=== PATIENT | male | born 1970 | race African-American/Black ===

== ENCOUNTER 2018-03-08 14:47 | Inpatient (IN) | payer SELFPAY ==
[2018-03-08 16:43] VITALS: BMI 28.4
--- NOTE | 2018-03-08 18:06 | HP ---
CIWA Score - CIWA Score Nausea/Vomitin-No Nausea/No Vomiting Muscle Tremors: 2 Anxiety: 4-Mod. Anxious/Guarded Agitation: 4-Moderately Restless Paroxysmal Sweats: 2 Orientation: 1-Uncertain about Date (no distress) Tacttile Disturbances: 0-None Auditory Disturbances: 0-None Visual Disturbances: 0-None Headache: 1-Very Mild CIWA-Ar Total Score: 14 Admission ROS BHS - HPI Chief Complaint: alcohol withdrawal sx Allergies/Adverse Reactions: Allergies Allergy/AdvReac Type Severity Reaction Status Date / Time shellfish derived Allergy Severe Swelling Verified 03/08/18 17:16 No Known Drug Allergies Allergy Verified 03/08/18 18:14 History of Present Illness: 47 yo male with hx of alcohol and cocaine dependence si here seeking detox. last detox [facility] 45 days ago. PMHX: HTN, HDL, anxiety, bipolar. Denies suicidal / homicidal ideation or hx of suicide attempt. Reports no significant period of sobriety. Denies any legal troubles.Denies any hx of seizure or blackouts. Exam Limitations: No Limitations - Ebola screening Have you traveled outside of the country in the last 21 days: No Have you had contact with anyone from an Ebola affected area: No Have you been sick,other than usual withdrawal symptoms: No - Review of Systems Constitutional: Chills, Loss of Appetite, Changes in sleep, Other (weight gain + 15) EENT: reports: No Symptoms Reported Respiratory: reports: No Symptoms reported Cardiac: reports: No Symptoms Reported GI: reports: Poor Fluid Intake : reports: No Symptoms Reported Musculoskeletal: reports: No Symptoms Reported Integumentary: reports: No Symptoms Reported Neuro: reports: See HPI, Headache Endocrine: reports: Increased Thirst Hematology: reports: No Symptoms Reported Psychiatric: reports: Orientated x3, Anxious Other Systems: Reviewed and Negative Patient History - Patient Medical History Hx Anemia: No Hx Asthma: No Hx Chronic Obstructive Pulmonary Disease (COPD): No Hx Cancer: No Hx Cardiac Disorders: No Hx Congestive Heart Failure: No Hx Hypertension: Yes (on meds.) Hx Hypercholesterolemia: No Hx Pacemaker: No HX Cerebrovascular Accident: No Hx Seizures: No Hx Dementia: No Hx Diabetes: No Hx Gastrointestinal Disorders: No Hx Liver Disease: No Hx Genitourinary Disorders: No Hx Sexually Transmitted Disorders: No Hx Renal Disease (ESRD): No Hx Thyroid Disease: No Hx Human Immunodeficiency Virus (HIV): No Hx Hepatitis C: No Hx Depression: Yes Hx Suicide Attempt: No Hx Bipolar Disorder: Yes Hx Schizophrenia: No - Patient Surgical History Past Surgical History: Yes Other Surgical History: Pt has sx both ears in 2004 and 2005 Anesthesia Reaction: No - PPD History Previous Implant?: Yes Documented Results: Negative w/o proof Implanted On Prior R Admission?: No PPD to be Administered?: Yes - Smoking Cessation Smoking history: Former smoker Have you smoked in the past 12 months: No Hx Chewing Tobacco Use: No Initiated information on smoking cessation: No - Substance & Tx. History Hx Alcohol Use: Yes Hx Substance Use: Yes Substance Use Type: Alcohol, Cocaine Hx Substance Use Treatment: Yes ([facility] 45 days ago ) - Substances Abused Alcohol Route: Oral Frequency: Daily Amount used: 6-7 20 oz beer or 2 pints liquor Age of first use: 16 Date of Last Use: 03/08/18 Cocaine Route: Smoking Frequency: Daily Amount used: $100-150 Age of first use: 16 Date of Last Use: 03/07/18 Family Disease History - Family Disease History Family Disease History: Other: Mother (alcoholism, ) Admission Physical Exam BHS - Vital Signs Vital Signs: Vital Signs - 24 hr 03/08/18 16:41 Temperature 98.3 F Pulse Rate 96 H Respiratory 20 Rate Blood Pressure 156/87 - Physical General Appearance: Yes: Disheveled, Mild Distress, Moderate Distress, Obese, Sweating, Anxious HEENTM: Yes: EOMI, Hearing grossly Normal, Normal ENT Inspection, Normocephalic , Normal Voice, [place], Pharynx Normal, Tm's normal, Rhinorrhea, Other (scar back of head) Respiratory: Yes: Chest Non-Tender, Lungs Clear, Normal Breath Sounds, No Respiratory Distress, No Accessory Muscle Use Neck: Yes: Within Normal Limits Cardiology: Yes: Regular Rhythm, Tachycardia Abdominal: Yes: Normal Bowel Sounds, Non Tender, Soft, Protuberent Genitourinary: Yes: Within Normal Limits Back: Yes: Normal Inspection Musculoskeletal: Yes: full range of Motion, Gait Steady, Pelvis Stable Extremities: Yes: Normal Capillary Refill, Normal Inspection, Normal Range of Motion, Non-Tender Neurological: Yes: transplant surgeon II-XII NML intact, Fully Oriented, Alert, Motor Strength 5/5, Depressed Affect Integumentary: Yes: Normal Color, Warm, Diaphoresis Lymphatic: Yes: Within Normal Limits - Diagnostic (1) Hypertension Current Visit: Yes Status: Chronic Qualifiers: Hypertension type: essential hypertension Qualified Code(s): I10 - Essential (primary) hypertension (2) Hyperlipidemia Current Visit: Yes Status: Chronic Qualifiers: Hyperlipidemia type: unspecified Qualified Code(s): E78.5 - Hyperlipidemia , unspecified (3) Alcohol dependence with withdrawal Current Visit: Yes Status: Acute Qualifiers: Complication of substance-induced condition: uncomplicated Qualified Code(s ): F10.230 - Alcohol dependence with withdrawal, uncomplicated (4) Cocaine dependence Current Visit: Yes Status: Acute Qualifiers: Substance use status: uncomplicated Qualified Code(s): F14.20 - Cocaine dependence, uncomplicated Cleared for Admission S - Detox or Rehab [facility] Level of Care: Medically Managed Detox Regimen/Protocol: Librium S Breath Alcohol Content Breath Alcohol Content: 0 Urine Drug Screen - Results Drug Screen Negative: No Urine Drug Screen Results: [facility]-Cocaine
[2018-03-08] MEDS ORDERED: IBUPROFEN 400 MG TABLET (FP) PO PRN (18:08)
[2018-03-08] MEDS ORDERED: hydrOXYzine PAMOATE 50 MG CAPSULE (FP) PO PRN (18:08)
[2018-03-08] MEDS ORDERED: ACETAMINOPHEN 325 MG TABLET (FP) PO PRN (18:08)
[2018-03-08] MEDS ORDERED: MAGNESIUM HYDROX 2400MG/30ML ORAL SUSPENSION 30 ML CUP PO PRN (18:08)
[2018-03-08] MEDS ORDERED: LOPERAMIDE HCL 2 MG CAPSULE PO PRN (18:08)
[2018-03-08] MEDS ORDERED: chlordiazePOXIDE HCL 25 MG CAPSULE PO PRN (18:08)
[2018-03-08] MEDS ORDERED: P-EPHED 60MG/TRIPROLIDI 2.5MG TABLET PO PRN (18:08)
[2018-03-08] MEDS ORDERED: MAGNESIUM CITRATE 300 ML BOTTLE PO PRN (18:08)
[2018-03-08] MEDS ORDERED: MAG HYDROX/AL HYDROX/SIMETH 30 ML UNIT-DOSE CUP PO PRN (18:08)
[2018-03-08] MEDS ORDERED: NICOTINE POLACRILEX 2 MG GUM BC PRN (18:08)
[2018-03-08] MEDS ORDERED: chlordiazePOXIDE HCL 25 MG CAPSULE PO ONE (19:00)
[2018-03-08] MEDS ORDERED: MELATONIN 5 MG TABLETS PO PRN (22:00)
[2018-03-08] MEDS: THIAMINE HCL 100 MG TABLET (FP) PO SCH (22:04)
[2018-03-08] MEDS: RANITIDINE HCL 150 MG TABLET (FP) PO SCH (22:04)
[2018-03-08] MEDS: chlordiazePOXIDE HCL 25 MG CAPSULE PO SCH (22:05)
[2018-03-08] MEDS: ATORVASTATIN CA 20 MG TABLET (FP) PO SCH (22:05)
[2018-03-08 22:17] LABS: URINE APPEARANCE CLEAR; URINE BILIRUBIN NEGATIVE (<2.0 mg/dL); URINE COLOR LTYELLOW; URINE GLUCOSE (UA) NEGATIVE (NEGATIVE); URINE KETONE NEGATIVE (NEGATIVE); URINE LEUK ESTERASE NEGATIVE (NEGATIVE); URINE NITRITE NEGATIVE (NEGATIVE); URINE PROTEIN NEGATIVE (NEGATIVE); URINE UROBILINOGEN NEGATIVE mg/dL (0.2-1.0)
[2018-03-09] MEDS: chlordiazePOXIDE HCL 25 MG CAPSULE PO SCH ×4 (05:09→22:27)
--- NOTE | 2018-03-09 06:43 | PN ---
BHS Progress Note Note: Patient's blood pressure this morning is B/P 156/101. Patient is asymptomatic Vital Signs Temperature 97.4 F L 03/09/18 06:18 Pulse Rate 80 03/09/18 06:18 Respiratory Rate 18 03/09/18 06:18 Blood Pressure 156/101 H 03/09/18 06:18 O2 Sat by Pulse Oximetry (%) Action: Clonidine 0.1mg 1tablet oral ordered
[2018-03-09] MEDS ORDERED: cloNIDine HCL 0.1 MG TABLET PO ONE (06:45)
[2018-03-09] MEDS ORDERED: LISINOPRIL 20 MG TABLET (FP) PO SCH (10:00)
--- NOTE | 2018-03-09 10:04 | CONSULT ---
[facility] Psychiatric Consult - Data Date of interview: 03/09/18 Admission source: [facility] Identifying data: Patient is a 47 year old single male, unemployed (denies receiving financial asssistance), and is currently homeless. This is patient's first admission to detox at [facility]. Patient admitted to for alcohol dependence. Substance Abuse History: Smoking Cessation. Smoking history: Former smoker. Have you smoked in the past 12 months: No. Hx Chewing Tobacco Use: No. Initiated information on smoking cessation: No. - Substance & Tx. History. Hx Alcohol Use: Yes. Hx Substance Use: Yes. Substance Use Type: Alcohol, Cocaine. Hx Substance Use Treatment: Yes ([facility] 45 days ago ). - Substances Abused. Alcohol. Route: Oral. Frequency: Daily. Amount used: 6 -7 20 oz beer or 2 pints liquor. Age of first use: 16. Date of Last Use: 03/08. Cocaine. Route: Smoking. Frequency: Daily. Amount used: $100-150. Age of first use: 16. Date of Last Use: 03/07/18 Medical History: hypertension Psychiatric History: Patient's first psychatric contact was at 23 years of age while he was incarcerated. He was diagnosed with bipolar and schizoaffective disorder. Patient was prescribed risperdal, seroquel, and buspar. He reports multiple psychiatric hospitalizations, most recently one month ago at [facility] after stating he wanted to hurt himself due to having a verbal dispute with his girlfriend. Patient is also known to [facility]. Patient denies current outpatient psychiatric care. While at [facility] he reports being prescribed vistaril 25mg + risperdal 3qhs + Seroquel 100mg and buspar (unknown dose). Pharmacy claims reviewed and noted an electronic prescription sent to patient's pharmacy on 12/08/17 for Vistaril 50mg q6h + Seroquel 100mg qhs + Risperdal 2mg daily + 3mg qhs. Pt. denies taking risperdal 2mg in the morning, states he has only taken risperdal 3mg at night. He last accepted risperdal 3mg last week. He denies current outpatient pscyhiatric care. He reports receiving refills from detox/rehab facilites. Patient denies h/o suicide attempt. Patient is asymptomatic. No psychosis, manic or depressive symptoms noted. He currently reports poor sleep. Physical/Sexual Abuse/Trauma History: denies. Mental Status Exam - Mental Status Exam Alert and Oriented to: Time, Place, Person Cognitive Function: Good Patient Appearance: Well Groomed Mood: Euthymic Affect: Mood Congruent Patient Behavior: Cooperative Speech Pattern: Appropriate Voice Loudness: Normal Thought Process: Intact, Goal Oriented Thought Disorder: Not Present Hallucinations: Denies Suicidal Ideation: Denies Homicidal Ideation: Denies Insight/Judgement: Poor Sleep: Poorly Appetite: Fair Muscle strength/Tone: Normal Gait/Station: Normal Psychiatric Findings - Problem List ([place] 1, 2,3) (1) Schizoaffective disorder Current Visit: Yes Status: Chronic Comment: self reports. (2) Alcohol dependence with withdrawal Current Visit: Yes Status: Acute Qualifiers: Complication of substance-induced condition: uncomplicated Qualified Code(s ): F10.230 - Alcohol dependence with withdrawal, uncomplicated (3) Cocaine dependence Current Visit: Yes Status: Chronic Qualifiers: Substance use status: uncomplicated Qualified Code(s): F14.20 - Cocaine dependence, uncomplicated - Initial Treatment Plan Initial Treatment Plan: Psychoeducation provided. Detoxification in progress. Will order risperdal 1mg BID + Seroquel 100mg qhs + Cogentin 0.5mg BID. Benefits and side effects discussed. Verbal consent given.
[2018-03-09 10:12] LABS: HEMATOCRIT 33.9 % (35.4-49); HEMOGLOBIN 11.3 GM/dL (11.7-16.9); MCH 28.5 pg (25.7-33.7); MCHC 33.4 g/dl (32.0-35.9); MEAN CELL VOLUME 85.3 fl (80-96); MEAN PLT VOLUME 8.5 fl (7.5-11.1); PLATELET COUNT 285 K/MM3 (134-434); RBC 3.97 M/mm3 (4.00-5.60); RDW 13.5 % (11.9-15.9); WHITE BLOOD COUNT 3.8 K/mm3 (4.0-10.0)
--- NOTE | 2018-03-09 10:17 | PN ---
S CIWA - CIWA Score Nausea/Vomitin-No Nausea/No Vomiting Muscle Tremors: 4-Moderate,w/Arms Extend Anxiety: 3 Agitation: 3 Paroxysmal Sweats: 3 Orientation: 0-Oriented Tacttile Disturbances: 0-None Auditory Disturbances: 0-None Visual Disturbances: 0-None Headache: 0-None Present CIWA-Ar Total Score: 13 BHS Progress Note (SOAP) Subjective: sweats mild shakes interrupted sleep Objective: 03/09/18 10:17 Vital Signs Temperature 98.4 F 03/09/18 09:40 Pulse Rate 90 03/09/18 09:40 Respiratory Rate 20 03/09/18 09:40 Blood Pressure 126/73 03/09/18 09:40 O2 Sat by Pulse Oximetry (%) Laboratory Tests 03/08/18 03/09/18 20:48 07:00 WBC 3.8 L RBC 3.97 L Hgb 11.3 L Hct 33.9 L MCV 85.3 MCH 28.5 MCHC 33.4 RDW 13.5 Plt Count 285 MPV 8.5 Urine Color Ltyellow Urine Appearance Clear Urine pH 5.0 Ur Specific [place] 1.018 Urine Protein Negative Urine Glucose (UA) Negative Urine Ketones Negative Urine Blood Negative Urine Nitrite Negative Urine Bilirubin Negative Urine Urobilinogen Negative Ur Leukocyte Esterase Negative rest of labs pending aaox 3 ambulating no acute distress Assessment: 03/09/18 10:21 withdrawal sx Plan: continue detox increase fluids labs pending
[2018-03-09] MEDS: NICOTINE 14 MG/24 HOURS TOPICAL PATCH TD SCH (10:20)
[2018-03-09] MEDS: PRENATAL VITAMINS W/ FOLIC ACID TABLET (FP) PO SCH (10:20)
[2018-03-09] MEDS: amLODIPine BESYLATE 10 MG TABLET (FP) PO SCH (10:21)
[2018-03-09] MEDS: RANITIDINE HCL 150 MG TABLET (FP) PO SCH ×2 (10:21→22:27)
[2018-03-09] MEDS: ASPIRIN 81 MG CHEWABLE TABLETS PO SCH (10:21)
[2018-03-09] MEDS: HYDROCHLOROTHIAZIDE 25 MG TABLET (FP) PO SCH (10:21)
[2018-03-09 10:30] LABS: ALBUMIN 3.3 g/dl (3.4-5.0); ALK PHOS 67 U/L (45-117); ANION GAP 6 MMOL/L (8-16); BILIRUBIN,TOTAL 0.2 mg/dL (0.2-1); BLOOD UREA NITROGEN 19 mg/dL (7-18); CALCIUM 8.7 mg/dL (8.5-10.1); CHLORIDE 106 mmol/L (98-107); CO2 25 mmol/L (21-32); CREATININE 1.3 mg/dL (0.55-1.3); GLUCOSE,RANDOM 175 mg/dL (74-106); POTASSIUM 4.1 mmol/L (3.5-5.1); SGOT/AST 19 U/L (15-37); SGPT/ALT 41 U/L (13-61); SODIUM 137 mmol/L (136-145); TOT PROT 6.3 g/dl (6.4-8.2)
[2018-03-09] MEDS ORDERED: ENALAPRIL MALEATE 10 MG TABLET (FP) PO SCH (10:45)
[2018-03-09] MEDS: BENZTROPINE MESYLATE 1 MG TABLET (FP) PO SCH ×2 (11:39→22:27)
[2018-03-09] MEDS: risperiDONE 1 MG TABLET (FP) PO SCH ×2 (11:40→22:27)
[2018-03-09] MEDS: hydrOXYzine PAMOATE 50 MG CAPSULE (FP) PO PRN ×2 (11:57→18:53)
--- NOTE | 2018-03-09 13:16 | EKG ---
Test Reason : Blood Pressure : / mmHG Vent. Rate : 086 BPM Atrial Rate : 086 BPM P-R Int : 168 ms QRS Dur : 078 ms QT Int : 360 ms P-R-T Axes : 062 049 052 degrees QTc Int : 430 ms NORMAL SINUS RHYTHM NONSPECIFIC ST AND T WAVE ABNORMALITY ABNORMAL ECG WHEN COMPARED WITH ECG OF 08-MAR-2018 19:05, ST NO LONGER DEPRESSED IN ANTERIOR LEADS QT HAS SHORTENED Confirmed by MD QUINTEN, MAIN ([id number]) on 03/09/2018 1:15:42 PM Referred By: Confirmed By:MAIN SHIPLEY MD
--- NOTE | 2018-03-09 13:17 | EKG ---
Test Reason : Blood Pressure : / mmHG Vent. Rate : 078 BPM Atrial Rate : 078 BPM P-R Int : 154 ms QRS Dur : 066 ms QT Int : 448 ms P-R-T Axes : 064 059 054 degrees QTc Int : 510 ms POOR DATA QUALITY, INTERPRETATION MAY BE ADVERSELY AFFECTED NORMAL SINUS RHYTHM NONSPECIFIC T WAVE ABNORMALITY PROLONGED QT ABNORMAL ECG NO PREVIOUS ECGS AVAILABLE Confirmed by MD QUINTEN, MAIN ([id number]) on 03/09/2018 1:17:18 PM Referred By: Confirmed By:MAIN SHIPLEY MD
[2018-03-09] MEDS: MENTHOL/PHENOL 1 EACH UD MM PRN ×2 (19:25→22:28)
[2018-03-09] MEDS: guaiFENesin/D-METHORPHAN HB 10 ML UNIT-DOSE CUPS PO PRN (21:12)
[2018-03-09] MEDS: THIAMINE HCL 100 MG TABLET (FP) PO SCH (22:26)
[2018-03-09] MEDS: ATORVASTATIN CA 20 MG TABLET (FP) PO SCH (22:27)
[2018-03-09] MEDS: QUEtiapine FUMARATE 100 MG TABLET (FP) PO SCH (22:27)
[2018-03-10] MEDS: hydrOXYzine PAMOATE 50 MG CAPSULE (FP) PO PRN ×4 (05:50→19:19)
[2018-03-10] MEDS: chlordiazePOXIDE HCL 25 MG CAPSULE PO SCH ×3 (05:50→17:01)
[2018-03-10] MEDS: guaiFENesin/D-METHORPHAN HB 10 ML UNIT-DOSE CUPS PO PRN (05:52)
[2018-03-10] MEDS: MENTHOL/PHENOL 1 EACH UD MM PRN ×2 (06:08→10:51)
--- NOTE | 2018-03-10 09:51 | PN ---
[facility] CIWA - CIWA Score Nausea/Vomitin-No Nausea/No Vomiting Muscle Tremors: 3 Anxiety: 2 Agitation: 2 Paroxysmal Sweats: 3 Orientation: 0-Oriented Tacttile Disturbances: 0-None Auditory Disturbances: 0-None Visual Disturbances: 0-None Headache: 0-None Present CIWA-Ar Total Score: 10 S Progress Note (SOAP) Subjective: I have a cold little sweats I am not a diabetic and I dont need to get my finger pricked. Objective: 03/10/18 09:49 Vital Signs Temperature 97.9 F 03/10/18 07:18 Pulse Rate 100 H 03/10/18 07:18 Respiratory Rate 20 03/10/18 07:18 Blood Pressure 138/85 03/10/18 07:18 O2 Sat by Pulse Oximetry (%) Laboratory Tests 03/08/18 03/09/18 03/09/18 20:48 07:00 07:00 WBC 3.8 L RBC 3.97 L Hgb 11.3 L Hct 33.9 L MCV 85.3 MCH 28.5 MCHC 33.4 RDW 13.5 Plt Count 285 MPV 8.5 Sodium 137 Potassium 4.1 Chloride 106 Carbon Dioxide 25 Anion Gap 6 L BUN 19 H Creatinine 1.3 Creat Clearance w eGFR 59.43 POC Glucometer Random Glucose 175 H Calcium 8.7 Total Bilirubin 0.2 AST 19 ALT 41 Alkaline Phosphatase 67 Total Protein 6.3 L Albumin 3.3 L Urine Color Ltyellow Urine Appearance Clear Urine pH 5.0 Ur Specific [place] 1.018 Urine Protein Negative Urine Glucose (UA) Negative Urine Ketones Negative Urine Blood Negative Urine Nitrite Negative Urine Bilirubin Negative Urine Urobilinogen Negative Ur Leukocyte Esterase Negative RPR Titer 03/09/18 03/10/18 07:00 06:34 WBC RBC Hgb Hct MCV MCH MCHC RDW Plt Count MPV Sodium Potassium Chloride Carbon Dioxide Anion Gap BUN Creatinine Creat Clearance w eGFR POC Glucometer 204 Random Glucose Calcium Total Bilirubin AST ALT Alkaline Phosphatase Total Protein Albumin Urine Color Urine Appearance Urine pH Ur Specific [place] Urine Protein Urine Glucose (UA) Urine Ketones Urine Blood Urine Nitrite Urine Bilirubin Urine Urobilinogen Ur Leukocyte Esterase RPR Titer Nonreactive aaox3 ambulating no acute distress Assessment: 03/10/18 09:53 withdrawal sx Plan: continue detox increase fluids encouraged to stay away of concentrated sweets,pt in agreement
[2018-03-10] MEDS: ASPIRIN 81 MG CHEWABLE TABLETS PO SCH (10:45)
[2018-03-10] MEDS: BENZTROPINE MESYLATE 1 MG TABLET (FP) PO SCH ×2 (10:45→23:04)
[2018-03-10] MEDS: risperiDONE 1 MG TABLET (FP) PO SCH ×2 (10:45→23:04)
[2018-03-10] MEDS: RANITIDINE HCL 150 MG TABLET (FP) PO SCH ×2 (10:45→23:04)
[2018-03-10] MEDS: HYDROCHLOROTHIAZIDE 25 MG TABLET (FP) PO SCH (10:45)
[2018-03-10] MEDS: PRENATAL VITAMINS W/ FOLIC ACID TABLET (FP) PO SCH (10:46)
[2018-03-10] MEDS: NICOTINE 14 MG/24 HOURS TOPICAL PATCH TD SCH (10:46)
[2018-03-10] MEDS: ENALAPRIL MALEATE 10 MG TABLET (FP) PO SCH (10:46)
[2018-03-10] MEDS: amLODIPine BESYLATE 10 MG TABLET (FP) PO SCH (10:46)
[2018-03-10] MEDS: ATORVASTATIN CA 20 MG TABLET (FP) PO SCH (23:04)
[2018-03-10] MEDS: chlordiazePOXIDE 5 MG CAPSULE PO SCH (23:04)
[2018-03-10] MEDS: QUEtiapine FUMARATE 100 MG TABLET (FP) PO SCH (23:04)
[2018-03-10] MEDS: THIAMINE HCL 100 MG TABLET (FP) PO SCH (23:04)
[2018-03-11] MEDS: chlordiazePOXIDE 5 MG CAPSULE PO SCH ×3 (05:26→17:34)
[2018-03-11] MEDS: hydrOXYzine PAMOATE 50 MG CAPSULE (FP) PO PRN ×4 (05:27→22:13)
[2018-03-11] MEDS: guaiFENesin/D-METHORPHAN HB 10 ML UNIT-DOSE CUPS PO PRN (05:35)
[2018-03-11] MEDS: ASPIRIN 81 MG CHEWABLE TABLETS PO SCH (10:18)
[2018-03-11] MEDS: PRENATAL VITAMINS W/ FOLIC ACID TABLET (FP) PO SCH (10:18)
[2018-03-11] MEDS: RANITIDINE HCL 150 MG TABLET (FP) PO SCH ×2 (10:18→23:29)
[2018-03-11] MEDS: ENALAPRIL MALEATE 10 MG TABLET (FP) PO SCH (10:18)
[2018-03-11] MEDS: amLODIPine BESYLATE 10 MG TABLET (FP) PO SCH (10:18)
[2018-03-11] MEDS: HYDROCHLOROTHIAZIDE 25 MG TABLET (FP) PO SCH (10:19)
[2018-03-11] MEDS: BENZTROPINE MESYLATE 1 MG TABLET (FP) PO SCH ×2 (10:19→22:11)
[2018-03-11] MEDS: NICOTINE 14 MG/24 HOURS TOPICAL PATCH TD SCH (10:19)
[2018-03-11] MEDS: risperiDONE 1 MG TABLET (FP) PO SCH ×2 (10:20→22:11)
--- NOTE | 2018-03-11 10:30 | PN ---
BHS Progress Note (SOAP) Subjective: sweats feeling better. Objective: 03/11/18 10:30 Vital Signs Temperature 97.7 F 03/11/18 08:07 Pulse Rate 96 H 03/11/18 08:07 Respiratory Rate 20 03/11/18 08:07 Blood Pressure 135/81 03/11/18 08:07 O2 Sat by Pulse Oximetry (%) aaox3 ambulating no acute distress Assessment: 03/11/18 10:30 mild withdrawal sx Plan: continue detox increase fluids d/c in am
[2018-03-11] MEDS: chlordiazePOXIDE HCL 10 MG CAPSULE PO SCH (22:11)
[2018-03-11] MEDS: QUEtiapine FUMARATE 100 MG TABLET (FP) PO SCH (22:11)
[2018-03-11] MEDS: THIAMINE HCL 100 MG TABLET (FP) PO SCH (22:11)
[2018-03-11] MEDS: ATORVASTATIN CA 20 MG TABLET (FP) PO SCH (22:11)
[2018-03-12] MEDS: chlordiazePOXIDE HCL 10 MG CAPSULE PO SCH (05:28)
--- NOTE | 2018-03-12 08:53 | DS ---
[facility] Detox Discharge Summary Admission Date: 03/08/18 Discharge Date: 03/12/18 - History Present History: Alcohol Dependence, Cocaine Dependence - Physical Exam Results Vital Signs: Vital Signs Temperature 98.1 F 03/12/18 08:11 Pulse Rate 88 03/12/18 08:11 Respiratory Rate 18 03/12/18 08:11 Blood Pressure 121/85 03/12/18 08:11 O2 Sat by Pulse Oximetry (%) - Treatment Hospital Course: Detox Protocol Followed, Detoxed Safely, Responded well, Discharged Condition Good, Rehab Referral Accepted - Medication Discharge Medications: Ambulatory Orders Amlodipine Besylate [Norvasc -] 10 mg PO DAILY 03/08/18 Aspirin [ASA -] 81 mg PO DAILY 03/08/18 Atorvastatin Calcium [Lipitor] 20 mg PO HS 03/08/18 Benztropine Mesylate [Cogentin -] 0.5 mg PO BID 03/08/18 Buspirone HCl [Buspar -] 15 mg PO BID 03/08/18 Hydrochlorothiazide [Hctz -] 25 mg PO DAILY 03/08/18 Lisinopril 20 mg PO DAILY 03/08/18 Quetiapine Fumarate [Seroquel -] 100 mg PO HS 03/08/18 Ranitidine [Zantac -] 150 mg PO BID 03/08/18 Risperidone [Risperdal -] 3 mg PO HS 03/08/18 hydrOXYzine PAMOATE [Vistaril -] 25 mg PO QID PRN 03/08/18 Enalapril Maleate [Vasotec -] 10 mg PO BID 03/09/18 - Diagnosis (1) Alcohol dependence with withdrawal Current Visit: Yes Status: Chronic Qualifiers: Complication of substance-induced condition: uncomplicated Qualified Code(s ): F10.230 - Alcohol dependence with withdrawal, uncomplicated (2) Cocaine dependence Current Visit: Yes Status: Chronic Qualifiers: Substance use status: uncomplicated Qualified Code(s): F14.20 - Cocaine dependence, uncomplicated (3) Hyperlipidemia Current Visit: Yes Status: Chronic Qualifiers: Hyperlipidemia type: unspecified Qualified Code(s): E78.5 - Hyperlipidemia , unspecified (4) Hypertension Current Visit: Yes Status: Chronic Qualifiers: Hypertension type: essential hypertension Qualified Code(s): I10 - Essential (primary) hypertension - AMA Did Patient Leave Against Medical Advice: No
[2018-03-12 09:15] VITALS: BP 141/69; PULSE 91; TEMP 97.7
[2018-03-12] MEDS: ASPIRIN 81 MG CHEWABLE TABLETS PO SCH (09:44)
[2018-03-12] MEDS: PRENATAL VITAMINS W/ FOLIC ACID TABLET (FP) PO SCH (09:44)
[2018-03-12] MEDS: risperiDONE 1 MG TABLET (FP) PO SCH (09:44)
[2018-03-12] MEDS: HYDROCHLOROTHIAZIDE 25 MG TABLET (FP) PO SCH (09:44)
[2018-03-12] MEDS: ENALAPRIL MALEATE 10 MG TABLET (FP) PO SCH (09:44)
[2018-03-12] MEDS: BENZTROPINE MESYLATE 1 MG TABLET (FP) PO SCH (09:44)
[2018-03-12] MEDS: RANITIDINE HCL 150 MG TABLET (FP) PO SCH (09:44)
[2018-03-12] MEDS: amLODIPine BESYLATE 10 MG TABLET (FP) PO SCH (09:44)
[2018-03-12] MEDS: NICOTINE 14 MG/24 HOURS TOPICAL PATCH TD SCH (09:45)
[2018-03-12] MEDS: hydrOXYzine PAMOATE 50 MG CAPSULE (FP) PO PRN (09:48)
== END 2018-03-12 10:00 | disposition home or self-care (01) | DRG 774 ==
LOC: YASAS 14:47 → Y6N 17:36
PROC: HZ2ZZZZ Detoxification Services for Substance Abuse Treatment (ICD-10-PCS; principal; 2018-03-08)
DX: F10.230 Alcohol dependence with withdrawal, uncomplicated (principal); F14.20 Cocaine dependence, uncomplicated; F25.9 Schizoaffective disorder, unspecified; I10 Essential (primary) hypertension; E78.5 Hyperlipidemia, unspecified; R00.0 Tachycardia, unspecified; E66.9 Obesity, unspecified; Z68.28 Body mass index [BMI] 28.0-28.9, adult; Z91.013 Allergy to seafood; Z87.891 Personal history of nicotine dependence
CPT/HCPCS: 36415; 80053; 81003; 82962; 85027; 86593; 93005; 93010; J0735; J2794

== ENCOUNTER 2018-10-19 17:45 | Inpatient (IN) | payer OTHER ==
[2018-10-19 21:23] VITALS: BMI 27.7
--- NOTE | 2018-10-19 23:20 | HP ---
CIWA Score Nausea/Vomitin Muscle Tremors: 4-Moderate,w/Arms Extend Anxiety: 3 Agitation: 2 Paroxysmal Sweats: 2 Orientation: 0-Oriented Tacttile Disturbances: 0-None Auditory Disturbances: 0-None Visual Disturbances: 0-None Headache: 3-Moderate CIWA-Ar Total Score: 16 - Admission Criteria [facility]ASAS Guidelines: Admission for Medically Managed Detox: Requires at least one of the followin. CIWA greater than 12 2. Seizures within the past 24 hours 3. Delirium tremens within the past 24 hours 4. Hallucinations within the past 24 hours 5. Acute intervention needed for co occurring medical disorder 6. Acute intervention needed for co occurring psychiatric disorder 7. Severe withdrawal that cannot be handled at a lower level of care (continued vomiting, continued diarrhea, abnormal vital signs) requiring intravenous medication and/or fluids 8. Admission ROS [facility] Chief Complaint: Alcohol withdrawal symptoms Allergies/Adverse Reactions: Allergies Allergy/AdvReac Type Severity Reaction Status Date / Time shellfish derived Allergy Severe Swelling Verified 03/08/18 17:16 No Known Drug Allergies Allergy Verified 03/08/18 18:14 History of Present Illness: 48 years old female with a long history of alcohol dependence is seeking admission to detox. Patient was in detox at [facility] and reports eight year of sobriety. He has medical history of hypertension, hypercholesterolemia and depression. He denies suicidal ideation at this time. Exam Limitations: No Limitations - Ebola screening Have you traveled outside of the country in the last 21 days: No (N) Have you had contact with anyone from an Ebola affected area: No Do you have a fever: No - Review of Systems Constitutional: Chills, Malaise EENT: reports: Nose Congestion Respiratory: reports: No Symptoms reported Cardiac: reports: No Symptoms Reported GI: reports: Poor Appetite, Poor Fluid Intake, Abdominal cramping : reports: No Symptoms Reported Musculoskeletal: reports: Back Pain Integumentary: reports: Dryness, Flushing Neuro: reports: Tremors Endocrine: reports: No Symptoms Reported Hematology: reports: No Symptoms Reported Psychiatric: reports: Mood/Affect Appropiate, Orientated x3 Other Systems: Reviewed and Negative Patient History - Patient Medical History Hx Anemia: No Hx Asthma: No Hx Chronic Obstructive Pulmonary Disease (COPD): No Hx Cancer: No Hx Cardiac Disorders: No Hx Congestive Heart Failure: No Hx Hypertension: Yes (Amlodipine) Hx Hypercholesterolemia: Yes (Lipitor) Hx Pacemaker: No HX Cerebrovascular Accident: No Hx Seizures: No Hx Dementia: No Hx Diabetes: No Hx Gastrointestinal Disorders: No Hx Liver Disease: No Hx Genitourinary Disorders: No Hx Sexually Transmitted Disorders: No Hx Renal Disease (ESRD): No Hx Thyroid Disease: No Hx Human Immunodeficiency Virus (HIV): No Hx Hepatitis C: No Hx Depression: Yes (Seroquel) Hx Suicide Attempt: No (Denies suicidal ideation at this time) Hx Bipolar Disorder: Yes Hx Schizophrenia: No - Patient Surgical History Past Surgical History: Yes Other Surgical History: Pt has sx both ears in 2004 and 2005 Anesthesia Reaction: No - PPD History Date: 03/10/18 - Smoking Cessation Smoking history: Former smoker Have you smoked in the past 12 months: No Hx Chewing Tobacco Use: No Initiated information on smoking cessation: No - Substances abused Alcohol Substance route: Oral Frequency: Daily Amount used: 5 TO 6 22 OZ Age of first use: 16 Date of last use: 10/19/18 Cocaine Substance route: Smoking Frequency: Daily Amount used: $85 Age of first use: 19 Date of last use: 10/19/18 Family Disease History - Family Disease History Family Disease History: Other: Mother (alcoholism, ) Admission Physical Exam S - Vital Signs Vital Signs: Vital Signs - 24 hr 10/19/18 21:19 Temperature 97.1 F L Pulse Rate 83 Respiratory 19 Rate Blood Pressure 170/100 - Physical General Appearance: Yes: Moderate Distress, Tremorous, Irritable, Anxious HEENTM: Yes: Within Normal Limits, Normal Voice Respiratory: Yes: Lungs Clear, Normal Breath Sounds, No Respiratory Distress Neck: Yes: Supple Breast: Yes: Breast Exam Deferred Cardiology: Yes: Regular Rhythm, Regular Rate Abdominal: Yes: Normal Bowel Sounds Genitourinary: Yes: Within Normal Limits Back: Yes: Normal Inspection Musculoskeletal: Yes: Back pain, Muscle Pain Extremities: Yes: Tremors Neurological: Yes: Alert, Normal Mood/Affect Integumentary: Yes: Warm Lymphatic: Yes: Within Normal Limits - Diagnostic (1) Alcohol dependence with withdrawal Current Visit: Yes Status: Chronic Qualifiers: Complication of substance-induced condition: uncomplicated Qualified Code(s ): F10.230 - Alcohol dependence with withdrawal, uncomplicated (2) Cocaine dependence Current Visit: Yes Status: Chronic Qualifiers: Substance use status: uncomplicated Qualified Code(s): F14.20 - Cocaine dependence, uncomplicated (3) Hyperlipidemia Current Visit: Yes Status: Chronic Qualifiers: Hyperlipidemia type: unspecified Qualified Code(s): E78.5 - Hyperlipidemia , unspecified (4) Hypertension Current Visit: Yes Status: Chronic Qualifiers: Hypertension type: essential hypertension Qualified Code(s): I10 - Essential (primary) hypertension Cleared for Admission BHS - Detox or Rehab [facility] Level of Care: Medically Managed Detox Regimen/Protocol: Librium Breathalyzer - Breathalyzer Breathalyzer: 0 Urine Drug Screen - Test Device Lot number: [id number] Expiration date: 09/22/19 - Control Is test valid?: Yes - Results Drug screen NEGATIVE: No Urine drug screen results: [facility]-Cocaine Inpatient Rehab Admission - Rehab Decision to Admit Inpatient rehab admission?: No
[2018-10-19] MEDS ORDERED: ACETAMINOPHEN 325 MG TABLET (FP) PO PRN ×2 (23:22)
[2018-10-19] MEDS ORDERED: BISMUTH SUBSALICYLATE 524 MG/30 ML UD PO PRN (23:22)
[2018-10-19] MEDS ORDERED: hydrOXYzine PAMOATE 25 MG CAPSULE (FP) PO PRN (23:22)
[2018-10-19] MEDS ORDERED: METHOCARBAMOL 500 MG TABLET PO PRN (23:22)
[2018-10-19] MEDS ORDERED: MENTHOL/PHENOL 1 EACH UD MM PRN (23:22)
[2018-10-19] MEDS ORDERED: MAGNESIUM CITRATE 300 ML BOTTLE PO PRN (23:22)
[2018-10-19] MEDS ORDERED: MAGNESIUM HYDROX 2400MG/30ML ORAL SUSPENSION 30 ML CUP PO PRN (23:22)
[2018-10-19] MEDS ORDERED: IBUPROFEN 400 MG TABLET (FP) PO PRN (23:22)
[2018-10-19] MEDS ORDERED: MAG HYDROX/AL HYDROX/SIMETH 30 ML UNIT-DOSE CUP PO PRN (23:22)
[2018-10-19] MEDS ORDERED: chlordiazePOXIDE HCL 25 MG CAPSULE PO PRN (23:22)
[2018-10-20] MEDS: chlordiazePOXIDE HCL 25 MG CAPSULE PO SCH ×5 (00:33→22:09)
[2018-10-20] MEDS ORDERED: amLODIPine BESYLATE 10 MG TABLET (FP) PO SCH (10:00)
--- NOTE | 2018-10-20 10:01 | PN ---
S CIWA - CIWA Score Nausea/Vomitin-No Nausea/No Vomiting Muscle Tremors: 4-Moderate,w/Arms Extend Anxiety: 3 Agitation: 3 Paroxysmal Sweats: 3 Orientation: 0-Oriented Tacttile Disturbances: 0-None Auditory Disturbances: 0-None Visual Disturbances: 0-None Headache: 0-None Present CIWA-Ar Total Score: 13 BHS Progress Note (SOAP) Subjective: agitation sweats agitation interrupted sleep Objective: 10/20/18 10:00 Vital Signs Temperature 97.4 F L 10/20/18 09:21 Pulse Rate 77 10/20/18 09:21 Respiratory Rate 18 10/20/18 09:21 Blood Pressure 143/100 10/20/18 09:21 O2 Sat by Pulse Oximetry (%) labs pending aaox3 ambulating no acute distress Assessment: 10/20/18 10:00 withdrawal sx Plan: continue detox increase fluids pending labs
[2018-10-20 10:11] LABS: HEMATOCRIT 37.8 % (35.4-49); HEMOGLOBIN 12.4 GM/dL (11.7-16.9); MCH 29.5 pg (25.7-33.7); MCHC 32.7 g/dl (32.0-35.9); MEAN PLT VOLUME 8.3 fl (7.5-11.1); PLATELET COUNT 306 K/MM3 (134-434); RBC 4.19 M/mm3 (4.00-5.60); RDW 15.7 % (11.9-15.9); WHITE BLOOD COUNT 3.4 K/mm3 (4.0-10.0)
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
[2018-10-20 10:38] LABS: ALBUMIN 3.5 g/dl (3.4-5.0); BILIRUBIN,TOTAL 0.3 mg/dL (0.2-1); CALCIUM 9.7 mg/dL (8.5-10.1); CREATININE 1.2 mg/dL (0.55-1.3); POTASSIUM 3.7 mmol/L (3.5-5.1); TOT PROT 6.8 g/dl (6.4-8.2)
[2018-10-20] MEDS: PRENATAL VITAMINS W/ FOLIC ACID TABLET (FP) PO SCH (10:39)
[2018-10-20] MEDS: hydrOXYzine PAMOATE 50 MG CAPSULE (FP) PO PRN ×2 (11:41→16:53)
[2018-10-20] MEDS ORDERED: PNEUMOC 13-VAL CONJ-DIP CRM/PF 0.5 ML DISP.SYRIN IM ONE (12:00)
[2018-10-20] MEDS ORDERED: NIFEdipine E.R. 30 MG TABLET (FP) PO SCH (12:45)
--- NOTE | 2018-10-20 12:45 | PN ---
[facility] Progress Note Note: pt bp is high. research with pt pharmacy indicates pt is on nifepidine 30mg. will order first dose now.
[2018-10-20] MEDS ORDERED: cloNIDine HCL 0.1 MG TABLET PO ONE (13:00)
[2018-10-20] MEDS: risperiDONE 2 MG TABLET PO SCH (22:08)
[2018-10-20] MEDS: BENZTROPINE MESYLATE 1 MG TABLET (FP) PO SCH (22:08)
[2018-10-20] MEDS: ATORVASTATIN CA 20 MG TABLET (FP) PO SCH (22:08)
[2018-10-20] MEDS: QUEtiapine FUMARATE 100 MG TABLET (FP) PO SCH (22:09)
[2018-10-20] MEDS: THIAMINE HCL 100 MG TABLET (FP) PO SCH (22:09)
[2018-10-21] MEDS: chlordiazePOXIDE HCL 25 MG CAPSULE PO SCH ×3 (06:19→16:28)
[2018-10-21] MEDS: PRENATAL VITAMINS W/ FOLIC ACID TABLET (FP) PO SCH (10:23)
[2018-10-21] MEDS: NIFEdipine E.R. 30 MG TABLET (FP) PO SCH (10:23)
--- NOTE | 2018-10-21 11:37 | PN ---
S CIWA - CIWA Score Nausea/Vomitin-No Nausea/No Vomiting Muscle Tremors: 3 Anxiety: 2 Agitation: 3 Paroxysmal Sweats: 2 Orientation: 0-Oriented Tacttile Disturbances: 0-None Auditory Disturbances: 0-None Visual Disturbances: 0-None Headache: 0-None Present CIWA-Ar Total Score: 10 S Progress Note (SOAP) Subjective: anxiety shakes little sweats interrupted sleep Objective: 10/21/18 11:37 Vital Signs Temperature 97.0 F L 10/21/18 09:56 Pulse Rate 84 10/21/18 09:56 Respiratory Rate 18 10/21/18 09:56 Blood Pressure 158/94 10/21/18 09:56 O2 Sat by Pulse Oximetry (%) Laboratory Tests 10/20/18 10/20/18 10/20/18 07:00 07:00 07:00 WBC 3.4 L RBC 4.19 Hgb 12.4 Hct 37.8 MCV 90.0 MCH 29.5 MCHC 32.7 RDW 15.7 D Plt Count 306 MPV 8.3 Sodium 140 Potassium 3.7 Chloride 104 Carbon Dioxide 27 Anion Gap 9 BUN 14 Creatinine 1.2 Est GFR (CKD-EPI)AfAm 82.96 Est GFR (CKD-EPI)NonAf 71.58 Random Glucose 101 Calcium 9.7 Total Bilirubin 0.3 AST 22 ALT 26 Alkaline Phosphatase 69 Total Protein 6.8 Albumin 3.5 RPR Titer Nonreactive labs noted aaox3 ambulating no acute distress Assessment: 10/21/18 11:37 mild withdrawal sx Plan: continue detox increase fluids
[2018-10-21] MEDS: hydrOXYzine PAMOATE 50 MG CAPSULE (FP) PO PRN ×2 (11:49→16:28)
[2018-10-21] MEDS ORDERED: PNEUMOCOCCAL 23 VACCINE 0.5 ML VIAL IM ONE (12:00)
--- NOTE | 2018-10-21 12:56 | EKG ---
Test Reason : Blood Pressure : / mmHG Vent. Rate : 079 BPM Atrial Rate : 079 BPM P-R Int : 158 ms QRS Dur : 082 ms QT Int : 380 ms P-R-T Axes : 064 064 061 degrees QTc Int : 435 ms NORMAL SINUS RHYTHM MINIMAL VOLTAGE CRITERIA FOR LVH, MAY BE NORMAL VARIANT NONSPECIFIC T WAVE ABNORMALITY ABNORMAL ECG WHEN COMPARED WITH ECG OF 09-MAR-2018 09:20, NO SIGNIFICANT CHANGE WAS FOUND Confirmed by RAHEEM GORDON, GATITO ([id number]) on 10/21/2018 12:56:22 PM Referred By: Confirmed By:GATITO MACIEL MD
[2018-10-21] MEDS: BENZTROPINE MESYLATE 1 MG TABLET (FP) PO SCH (22:10)
[2018-10-21] MEDS: QUEtiapine FUMARATE 100 MG TABLET (FP) PO SCH (22:10)
[2018-10-21] MEDS: chlordiazePOXIDE HCL 10 MG CAPSULE PO SCH (22:10)
[2018-10-21] MEDS: risperiDONE 2 MG TABLET PO SCH (22:10)
[2018-10-21] MEDS: ATORVASTATIN CA 20 MG TABLET (FP) PO SCH (22:10)
[2018-10-21] MEDS: MELATONIN 5 MG TABLETS PO PRN (22:12)
[2018-10-21] MEDS: THIAMINE HCL 100 MG TABLET (FP) PO SCH (22:13)
[2018-10-21] MEDS ORDERED: chlordiazePOXIDE HCL 10 MG CAPSULE PO PRN (23:00)
[2018-10-22] MEDS: chlordiazePOXIDE HCL 10 MG CAPSULE PO SCH ×4 (06:18→22:11)
[2018-10-22] MEDS: NIFEdipine E.R. 30 MG TABLET (FP) PO SCH (10:23)
[2018-10-22] MEDS: PRENATAL VITAMINS W/ FOLIC ACID TABLET (FP) PO SCH (10:23)
--- NOTE | 2018-10-22 11:17 | PN ---
S CIWA - CIWA Score Nausea/Vomitin-No Nausea/No Vomiting Muscle Tremors: 2 Anxiety: 2 Agitation: 2 Paroxysmal Sweats: 1-Minimal Palms Moist Orientation: 0-Oriented Tacttile Disturbances: 0-None Auditory Disturbances: 0-None Visual Disturbances: 0-None Headache: 0-None Present CIWA-Ar Total Score: 7 [facility] Progress Note (SOAP) Subjective: sweats anxiety interrupted sleep Objective: 10/22/18 11:16 Vital Signs Temperature 97.8 F 10/22/18 10:29 Pulse Rate 90 10/22/18 10:29 Respiratory Rate 19 10/22/18 10:29 Blood Pressure 126/80 10/22/18 10:29 O2 Sat by Pulse Oximetry (%) aaox3 ambulating no acute distress Assessment: 10/22/18 11:16 mild withdrawal sx Plan: continue detox increase fluids
[2018-10-22] MEDS: hydrOXYzine PAMOATE 50 MG CAPSULE (FP) PO PRN ×3 (11:19→19:52)
[2018-10-22] MEDS: BENZTROPINE MESYLATE 1 MG TABLET (FP) PO SCH (22:11)
[2018-10-22] MEDS: ATORVASTATIN CA 20 MG TABLET (FP) PO SCH (22:11)
[2018-10-22] MEDS: risperiDONE 2 MG TABLET PO SCH (22:11)
[2018-10-22] MEDS: QUEtiapine FUMARATE 100 MG TABLET (FP) PO SCH (22:11)
[2018-10-22] MEDS: THIAMINE HCL 100 MG TABLET (FP) PO SCH (22:14)
[2018-10-22] MEDS: MELATONIN 5 MG TABLETS PO PRN (22:14)
[2018-10-23] MEDS: NIFEdipine E.R. 30 MG TABLET (FP) PO SCH (09:09)
[2018-10-23] MEDS: PRENATAL VITAMINS W/ FOLIC ACID TABLET (FP) PO SCH (09:09)
[2018-10-23] MEDS: hydrOXYzine PAMOATE 50 MG CAPSULE (FP) PO PRN ×3 (09:09→18:20)
[2018-10-23] MEDS ORDERED: PHENYLEPHRINE 0.25% NASAL SPRAY 15 ML BOTTLE NS SCH (10:00)
[2018-10-23] MEDS: chlordiazePOXIDE HCL 10 MG CAPSULE PO SCH ×2 (10:16→22:06)
[2018-10-23] MEDS ORDERED: OXYMETAZOLINE 0.05% NASAL SOLUTION 15 ML BOTTLE NS PRN (11:05)
--- NOTE | 2018-10-23 12:08 | PN ---
S CIWA - CIWA Score Nausea/Vomitin-No Nausea/No Vomiting Muscle Tremors: None Anxiety: 2 Agitation: 1-Slight > Activity Paroxysmal Sweats: 1-Minimal Palms Moist Orientation: 0-Oriented Tacttile Disturbances: 0-None Auditory Disturbances: 0-None Visual Disturbances: 0-None Headache: 1-Very Mild CIWA-Ar Total Score: 5 B[facility] Progress Note (SOAP) Subjective: c/o stuffy nose, interrupted sleep, mild headache, and anxiety. Objective: 10/23/18 12:07 Vital Signs 10/23/18 10/23/18 06:00 09:09 Temperature 97.2 F L 98.9 F Pulse Rate 91 H 88 Respiratory 18 18 Rate Blood Pressure 137/84 124/82 Assessment: 10/23/18 12:07 AOX3, in no acute distress. full rom, ambulating in the unit mild withdrawal symptoms. Plan: continue detox. oxymetazoline 0.05% nasal soln 2sprays bid prn.
[2018-10-23] MEDS: THIAMINE HCL 100 MG TABLET (FP) PO SCH (22:07)
[2018-10-23] MEDS: risperiDONE 2 MG TABLET PO SCH (22:07)
[2018-10-23] MEDS: QUEtiapine FUMARATE 100 MG TABLET (FP) PO SCH (22:07)
[2018-10-23] MEDS: ATORVASTATIN CA 20 MG TABLET (FP) PO SCH (22:07)
[2018-10-23] MEDS: MELATONIN 5 MG TABLETS PO PRN (22:08)
[2018-10-23] MEDS: BENZTROPINE MESYLATE 1 MG TABLET (FP) PO SCH (22:08)
[2018-10-24] MEDS: hydrOXYzine PAMOATE 50 MG CAPSULE (FP) PO PRN ×3 (05:58→18:43)
[2018-10-24] MEDS: PRENATAL VITAMINS W/ FOLIC ACID TABLET (FP) PO SCH (10:33)
[2018-10-24] MEDS: NIFEdipine E.R. 30 MG TABLET (FP) PO SCH (10:34)
--- NOTE | 2018-10-24 15:52 | PN ---
S CIWA - CIWA Score Nausea/Vomitin-No Nausea/No Vomiting Muscle Tremors: None Anxiety: 2 Agitation: 2 Paroxysmal Sweats: 2 Orientation: 0-Oriented Tacttile Disturbances: 0-None Auditory Disturbances: 0-None Visual Disturbances: 0-None Headache: 0-None Present CIWA-Ar Total Score: 6 BHS Progress Note (SOAP) Subjective: Sweating, anxious. Patient for discharge today but requested to leave tomorrow instead. As per patient, he is scheduled to go to [facility] tomorrow and if he leaves today, he is returning to the street to use drugs. Patient stated, "I have nowhere to go, if I go on the street, I'm going to mess up again." Objective: 10/24/18 15:50 Last Vital Signs Temp Pulse Resp BP Pulse Ox 97.3 F L 90 18 135/84 10/24/18 13:45 10/24/18 13:45 10/24/18 13:45 10/24/18 13:45 Laboratory Tests 10/20/18 10/20/18 10/20/18 07:00 07:00 07:00 WBC 3.4 L RBC 4.19 Hgb 12.4 Hct 37.8 MCV 90.0 MCH 29.5 MCHC 32.7 RDW 15.7 D Plt Count 306 MPV 8.3 Sodium 140 Potassium 3.7 Chloride 104 Carbon Dioxide 27 Anion Gap 9 BUN 14 Creatinine 1.2 Est GFR (CKD-EPI)AfAm 82.96 Est GFR (CKD-EPI)NonAf 71.58 Random Glucose 101 Calcium 9.7 Total Bilirubin 0.3 AST 22 ALT 26 Alkaline Phosphatase 69 Total Protein 6.8 Albumin 3.5 RPR Titer Nonreactive Labs reviewed Assessment: 10/24/18 15:51 Withdrawal symptoms Plan: Continue detox Encouraged PO water hydration Discharge changed to tomorrow as patient is at increased risk of relapsing.
[2018-10-24] MEDS: QUEtiapine FUMARATE 100 MG TABLET (FP) PO SCH (22:32)
[2018-10-24] MEDS: ATORVASTATIN CA 20 MG TABLET (FP) PO SCH (22:32)
[2018-10-24] MEDS: MELATONIN 5 MG TABLETS PO PRN (22:33)
[2018-10-24] MEDS: BENZTROPINE MESYLATE 1 MG TABLET (FP) PO SCH (22:33)
[2018-10-24] MEDS: risperiDONE 2 MG TABLET PO SCH (22:33)
[2018-10-24] MEDS: THIAMINE HCL 100 MG TABLET (FP) PO SCH (22:33)
[2018-10-25] MEDS: hydrOXYzine PAMOATE 50 MG CAPSULE (FP) PO PRN ×2 (05:56→10:13)
--- NOTE | 2018-10-25 09:12 | DS ---
[facility] Detox Discharge Summary Admission Date: 10/19/18 Discharge Date: 10/25/18 - History Present History: Alcohol Dependence, Cocaine Dependence - Physical Exam Results Vital Signs: Vital Signs Temperature 96.6 F L 10/25/18 06:07 Pulse Rate 91 H 10/25/18 06:07 Respiratory Rate 18 10/25/18 06:07 Blood Pressure 140/91 10/25/18 06:07 O2 Sat by Pulse Oximetry (%) - Treatment Hospital Course: Detox Protocol Followed, Detoxed Safely, Responded well, Discharged Condition Good, Rehab Referral Accepted - Medication Discharge Medications: Ambulatory Orders Amlodipine Besylate [Norvasc -] 10 mg PO DAILY 03/08/18 Atorvastatin Calcium [Lipitor] 20 mg PO HS 03/08/18 Quetiapine Fumarate [Seroquel -] 100 mg PO HS 03/08/18 Risperidone [Risperdal -] 1 mg PO HS 03/08/18 - Diagnosis (1) HLD (hyperlipidemia) Current Visit: Yes Status: Acute (2) Substance induced mood disorder Current Visit: Yes Status: Acute (3) Substance-induced sleep disorder Current Visit: Yes Status: Acute (4) Alcohol dependence with withdrawal Current Visit: Yes Status: Chronic Qualifiers: Complication of substance-induced condition: uncomplicated Qualified Code(s ): F10.230 - Alcohol dependence with withdrawal, uncomplicated (5) Cocaine dependence Current Visit: Yes Status: Chronic Qualifiers: Substance use status: uncomplicated Qualified Code(s): F14.20 - Cocaine dependence, uncomplicated (6) Hyperlipidemia Current Visit: Yes Status: Chronic Qualifiers: Hyperlipidemia type: unspecified Qualified Code(s): E78.5 - Hyperlipidemia , unspecified (7) Hypertension Current Visit: Yes Status: Chronic Qualifiers: Hypertension type: essential hypertension Qualified Code(s): I10 - Essential (primary) hypertension (8) Schizoaffective disorder Current Visit: No Status: Chronic - AMA Did Patient Leave Against Medical Advice: No ([facility] inpatient rehab)
[2018-10-25 09:17] VITALS: BP 117/79; PULSE 98; TEMP 97.3
[2018-10-25] MEDS: PRENATAL VITAMINS W/ FOLIC ACID TABLET (FP) PO SCH (10:13)
[2018-10-25] MEDS: NIFEdipine E.R. 30 MG TABLET (FP) PO SCH (10:13)
== END 2018-10-25 12:30 | disposition home or self-care (01) | DRG 774 ==
LOC: YASAS 17:45 → Y6N 23:53
PROVIDERS: ADMIT Surgery; ATTEND Surgery
PROC: HZ2ZZZZ Detoxification Services for Substance Abuse Treatment (ICD-10-PCS; principal; 2018-10-19)
DX: F10.230 Alcohol dependence with withdrawal, uncomplicated (principal); F14.20 Cocaine dependence, uncomplicated; F19.24 Other psychoactive substance dependence with psychoactive substance-induced mood disorder; F19.282 Other psychoactive substance dependence with psychoactive substance-induced sleep disorder; F25.9 Schizoaffective disorder, unspecified; F31.9 Bipolar disorder, unspecified; I10 Essential (primary) hypertension; E78.5 Hyperlipidemia, unspecified; Z91.013 Allergy to seafood
CPT/HCPCS: 36415; 80053; 85027; 86593; 93005; 93010; J0735

== ENCOUNTER 2022-09-04 15:51 | Inpatient (IN) | payer OTHER ==
[2022-09-04 16:41] VITALS: BMI 23.6
[2022-09-04] MEDS ORDERED: cloNIDine HCL 0.1 MG TABLET PO ONE (17:47)
[2022-09-04] MEDS ORDERED: cloNIDine HCL 0.1 MG TABLET ONE (17:49)
[2022-09-04] MEDS ORDERED: DICYCLOMINE HCL 10 MG CAPSULE PO PRN (18:09)
[2022-09-04] MEDS ORDERED: NALOXONE HCL (KLOXXADO) 8 MG SPRAY NS PRN (18:09)
[2022-09-04] MEDS ORDERED: METHOCARBAMOL 500 MG TABLET PO PRN (18:09)
[2022-09-04] MEDS ORDERED: ONDANSETRON *ODT* 4 MG TABLET SL PRN (18:09)
[2022-09-04] MEDS ORDERED: guaiFENesin 600 MG TABLET.ER (FP) PO PRN (18:09)
[2022-09-04] MEDS ORDERED: ACETAMINOPHEN 325 MG TABLET (FP) PO PRN (18:09)
[2022-09-04] MEDS ORDERED: MAGNESIUM HYDROX 2400MG/30ML ORAL SUSPENSION 30 ML CUP PO PRN (18:09)
[2022-09-04] MEDS ORDERED: IBUPROFEN 400 MG TABLET (FP) PO PRN (18:09)
[2022-09-04] MEDS ORDERED: P-EPHED 60MG/TRIPROLIDI 2.5MG TABLET PO PRN (18:09)
[2022-09-04] MEDS ORDERED: MAG HYDROX/AL HYDROX/SIMETH 30 ML UNIT-DOSE CUP PO PRN (18:09)
[2022-09-04] MEDS ORDERED: BISMUTH SUBSALICYLATE 524 MG/30 ML PO PRN (18:09)
[2022-09-04] MEDS ORDERED: BENZONATATE 200 MG CAPSULE PO PRN (18:09)
[2022-09-04] MEDS ORDERED: BENZOCAINE/MENTHOL (CHLORASEPTIC ) LOZENGE MM PRN (18:09)
[2022-09-04] MEDS ORDERED: LOPERAMIDE HCL 2 MG CAPSULE PO PRN (18:09)
[2022-09-04] MEDS ORDERED: POLYETHYLENE GLYCOL (HEALTHYLAX) 3350 17 GM PACKET PO PRN (18:09)
[2022-09-04] MEDS ORDERED: NALOXONE HCL 0.4 MG/ML VIAL IM PRN (18:09)
[2022-09-04] MEDS ORDERED: IBUPROFEN 600 MG TABLET (FP) PO PRN (18:09)
[2022-09-04] MEDS ORDERED: MELATONIN 5 MG TABLETS PO SCH (22:00)
[2022-09-04] MEDS: THIAMINE HCL 100 MG TABLET (FP) PO SCH (22:01)
[2022-09-04] MEDS: ATORVASTATIN CA 20 MG TABLET (FP) PO SCH (22:01)
[2022-09-04] MEDS: INSULIN (LEVEMIR) 100 UNITS/ML UNITS SQ SCH (22:02)
[2022-09-04] MEDS ORDERED: LISINOPRIL 10 MG TABLET PO ONE (22:07)
[2022-09-05] MEDS: metFORMIN HCL 500 MG TABLET (FP) PO SCH ×2 (06:36→17:25)
[2022-09-05] MEDS: INSULIN SLIDING SCALE (NOVOLOG) 1 VIAL SQ SCH ×3 (06:37→17:26)
[2022-09-05] MEDS ORDERED: amLODIPine BESYLATE 10 MG TABLET (FP) PO SCH (10:00)
[2022-09-05] MEDS ORDERED: NIFEdipine E.R. 30 MG TABLET PO SCH (10:00)
[2022-09-05] MEDS: LISINOPRIL 10 MG TABLET PO SCH (10:12)
[2022-09-05] MEDS: PRENATAL VITAMINS W/ FOLIC ACID TABLET (FP) PO SCH (10:12)
[2022-09-05] MEDS: cloNIDine HCL 0.1 MG TABLET PO SCH ×2 (10:14→21:24)
[2022-09-05] MEDS: hydrOXYzine PAMOATE 25 MG CAPSULE (FP) PO PRN ×2 (10:15→21:24)
[2022-09-05] MEDS: INSULIN (LEVEMIR) 100 UNITS/ML UNITS SQ SCH ×2 (11:04→21:25)
[2022-09-05 11:18] LABS: HEMOGLOBIN 12.3 GM/dL (11.7-16.9); MCH 28.7 pg (25.7-33.7); MCHC 33.2 g/dl (32.0-35.9); MEAN CELL VOLUME 86.3 fl (80-96); MEAN PLT VOLUME 8.1 fl (7.5-11.1); PLATELET COUNT 518 10^3/uL (134-434); RBC 4.29 M/mm3 (4.00-5.60); RDW 15.1 % (11.9-15.9)
[2022-09-05 11:41] LABS: CALCIUM 8.9 mg/dL (8.5-10.1)
[2022-09-05 11:42] LABS: ALBUMIN 2.6 g/dl (3.4-5.0); BLOOD UREA NITROGEN 13.4 mg/dL (7-18)
[2022-09-05 11:44] LABS: CREATININE 0.9 mg/dL (0.55-1.3)
[2022-09-05 11:46] LABS: BILIRUBIN,TOTAL 0.4 mg/dL (0.2-1); TOT PROT 6.8 g/dl (6.4-8.2)
[2022-09-05] MEDS: THIAMINE HCL 100 MG TABLET (FP) PO SCH (21:24)
[2022-09-05] MEDS: ATORVASTATIN CA 20 MG TABLET (FP) PO SCH (21:24)
[2022-09-05] MEDS: QUEtiapine FUMARATE 100 MG TABLET (FP) PO SCH (21:25)
[2022-09-05] MEDS: MIRTAZAPINE 15 MG TABLET (FP) PO SCH (21:25)
[2022-09-06] MEDS: metFORMIN HCL 500 MG TABLET (FP) PO SCH ×2 (06:15→17:35)
[2022-09-06] MEDS: INSULIN SLIDING SCALE (NOVOLOG) 1 VIAL SQ SCH ×3 (06:16→17:36)
[2022-09-06] MEDS: hydrOXYzine PAMOATE 25 MG CAPSULE (FP) PO PRN ×2 (06:19→22:15)
[2022-09-06] MEDS: PRENATAL VITAMINS W/ FOLIC ACID TABLET (FP) PO SCH (10:38)
[2022-09-06] MEDS: LISINOPRIL 10 MG TABLET PO SCH (10:38)
[2022-09-06] MEDS: INSULIN (LEVEMIR) 100 UNITS/ML UNITS SQ SCH ×2 (10:38→23:02)
[2022-09-06] MEDS: cloNIDine HCL 0.1 MG TABLET PO SCH ×2 (10:39→22:13)
[2022-09-06] MEDS ORDERED: INSULIN SLIDING SCALE (NOVOLOG) 1 VIAL SQ ONE (11:24)
[2022-09-06] MEDS: ATORVASTATIN CA 20 MG TABLET (FP) PO SCH (22:12)
[2022-09-06] MEDS: QUEtiapine FUMARATE 100 MG TABLET (FP) PO SCH (22:12)
[2022-09-06] MEDS: MIRTAZAPINE 15 MG TABLET (FP) PO SCH (22:13)
[2022-09-06] MEDS: THIAMINE HCL 100 MG TABLET (FP) PO SCH (23:01)
[2022-09-07] MEDS: metFORMIN HCL 500 MG TABLET (FP) PO SCH ×2 (06:11→17:57)
[2022-09-07] MEDS: INSULIN SLIDING SCALE (NOVOLOG) 1 VIAL SQ SCH ×3 (06:12→17:59)
[2022-09-07] MEDS: LISINOPRIL 10 MG TABLET PO SCH (10:36)
[2022-09-07] MEDS: PRENATAL VITAMINS W/ FOLIC ACID TABLET (FP) PO SCH (10:36)
[2022-09-07] MEDS: cloNIDine HCL 0.1 MG TABLET PO SCH ×2 (10:36→21:48)
[2022-09-07] MEDS: INSULIN (LEVEMIR) 100 UNITS/ML UNITS SQ SCH ×2 (10:42→21:49)
[2022-09-07] MEDS: hydrOXYzine PAMOATE 25 MG CAPSULE (FP) PO PRN (17:57)
[2022-09-07] MEDS: THIAMINE HCL 100 MG TABLET (FP) PO SCH (21:46)
[2022-09-07] MEDS: ATORVASTATIN CA 20 MG TABLET (FP) PO SCH (21:47)
[2022-09-07] MEDS: MIRTAZAPINE 15 MG TABLET (FP) PO SCH (21:47)
[2022-09-07] MEDS: QUEtiapine FUMARATE 100 MG TABLET (FP) PO SCH (21:47)
[2022-09-08] MEDS: INSULIN SLIDING SCALE (NOVOLOG) 1 VIAL SQ SCH (06:13)
[2022-09-08] MEDS: metFORMIN HCL 500 MG TABLET (FP) PO SCH (06:13)
[2022-09-08 09:45] VITALS: BP 175/89; PULSE 99; RESP 17; TEMP 97.1
[2022-09-08] MEDS ORDERED: amLODIPine BESYLATE 10 MG TABLET (FP) PO SCH (10:45)
[2022-09-08] MEDS: cloNIDine HCL 0.1 MG TABLET PO SCH (11:07)
[2022-09-08] MEDS: LISINOPRIL 10 MG TABLET PO SCH (11:07)
[2022-09-08] MEDS: PRENATAL VITAMINS W/ FOLIC ACID TABLET (FP) PO SCH (11:07)
[2022-09-08] MEDS: INSULIN (LEVEMIR) 100 UNITS/ML UNITS SQ SCH (11:08)
== END 2022-09-08 11:24 | disposition home or self-care (01) | DRG 774 ==
LOC: YASAS 15:51 → Y3N 18:30
PROVIDERS: ADMIT Allergy & Immunology; ATTEND Surgery
PROC: HZ2ZZZZ Detoxification Services for Substance Abuse Treatment (ICD-10-PCS; principal; 2022-09-04)
DX: F10.230 Alcohol dependence with withdrawal, uncomplicated (principal); F14.20 Cocaine dependence, uncomplicated; F19.282 Other psychoactive substance dependence with psychoactive substance-induced sleep disorder; F25.9 Schizoaffective disorder, unspecified; I10 Essential (primary) hypertension; E11.59 Type 2 diabetes mellitus with other circulatory complications; Z79.4 Long term (current) use of insulin; Z91.148 Patient's other noncompliance with medication regimen for other reason
CPT/HCPCS: 36415; 80053; 82962; 85027; 86780; C9803-CS; U0003; U0005